=== PATIENT | female | born 1945 | race Caucasian/White ===

== ENCOUNTER → 2017-02-01 | Outpatient (CLI) | payer MEDICARE, OTHER ==
[2017-02-01 14:22] LABS: HEMOGLOBIN A1C 0.8 g/dL
[2017-02-01 15:21] LABS: ALBUMIN/GLOBULIN RATIO 1.3 (1.0-2.2); BILIRUBIN,TOTAL 0.5 mg/dL (0.2-1.0); CALCIUM 10.5 mg/dL (8.5-10.3); CREATININE 0.7 mg/dL (0.4-1.0); POTASSIUM 3.7 mmol/L (3.5-5.0); TOTAL PROTEIN 7.5 g/dL (6.7-8.2)
== END ==
LOC: LAB.WCP 08:00
PROVIDERS: ATTEND Physician Assistant Medical
DX: E11.40 Type 2 diabetes mellitus with diabetic neuropathy, unspecified (principal)
CPT/HCPCS: 36415; 80053; 83036

== ENCOUNTER 2017-12-13 08:00 | Outpatient (CLI) | payer MEDICARE, OTHER ==
[2017-12-13 13:41] LABS: ALBUMIN/GLOBULIN RATIO 1.3 (1.0-2.2); ALKALINE PHOSPHATASE 60 IU/L (42-121); ALT ALANINE AMINOTRANSFERASE 33 IU/L (10-60); AST ASPARTATE AMINOTRANSFERASE 37 IU/L (10-42); BILIRUBIN,TOTAL 0.9 mg/dL (0.2-1.0); BUN - BLOOD UREA NITROGEN 18 mg/dL (6-20); CALCIUM 10.4 mg/dL (8.5-10.3); CARBON DIOXIDE - CO2 26 mmol/L (21-32); CHLORIDE 105 mmol/L (101-111); CHOL/HDL RATIO 4.2 (<4.4); CHOLESTEROL 146 mg/dL; CREATININE 0.6 mg/dL (0.4-1.0); GFR - MDRD 99 (>89); GLUCOSE 156 mg/dL (70-100); HDL CHOLESTEROL 35 mg/dL; LDL CHOLESTEROL,CALCULATED 68 mg/dL; LDL/HDL RATIO 1.9 (<4.4); SODIUM 140 mmol/L (135-145); TOTAL PROTEIN 7.1 g/dL (6.7-8.2); VLDL CHOLESTEROL 43 mg/dL
[2017-12-13 13:50] LABS: HB2 TOTAL 16.8 g/dL; HEMOGLOBIN A1C 1.06 g/dL; HEMOGLOBIN A1C % 7.9 % (4.6-6.2)
== END 2017-12-13 08:01 | disposition home or self-care (01) ==
LOC: LAB.WCP 08:00
PROVIDERS: ATTEND Physician Assistant Medical
DX: E11.9 Type 2 diabetes mellitus without complications (principal)
CPT/HCPCS: 36415; 80053; 80061; 82043; 83036; 83721

== ENCOUNTER 2018-04-24 09:00 | Outpatient (CLI) | payer MEDICARE, OTHER ==
[2018-04-24 14:54] LABS: CALCIUM 10.5 mg/dL (8.5-10.3); CREATININE 0.9 mg/dL (0.4-1.0)
[2018-04-24 15:32] LABS: HB2 TOTAL 15.6 g/dL; HEMOGLOBIN A1C 0.83 g/dL
[2018-04-25 13:57] LABS: HEPATITIS C ANTIBODY NON-REACTIVE (NON-REACTIVE)
== END 2018-04-24 09:01 | disposition home or self-care (01) ==
LOC: LAB.WCP 09:00
PROVIDERS: ATTEND Physician Assistant Medical
DX: E11.9 Type 2 diabetes mellitus without complications (principal); Z11.59 Encounter for screening for other viral diseases
CPT/HCPCS: 36415; 80048; 83036; 86803

== ENCOUNTER 2018-10-13 08:00 | Outpatient (CLI) | payer MEDICARE, OTHER ==
[2018-10-13 14:13] LABS: ALBUMIN 3.9 g/dL (3.2-5.5); ALBUMIN/GLOBULIN RATIO 1.2 (1.0-2.2); ALKALINE PHOSPHATASE 62 IU/L (42-121); ALT ALANINE AMINOTRANSFERASE 28 IU/L (10-60); AST ASPARTATE AMINOTRANSFERASE 29 IU/L (10-42); BILIRUBIN,TOTAL 0.7 mg/dL (0.2-1.0); BUN - BLOOD UREA NITROGEN 17 mg/dL (6-20); CALCIUM 9.9 mg/dL (8.5-10.3); CARBON DIOXIDE - CO2 28 mmol/L (21-32); CHLORIDE 103 mmol/L (101-111); CHOLESTEROL 119 mg/dL; CREATININE 0.7 mg/dL (0.4-1.0); GFR - MDRD 82 (>89); GLUCOSE 133 mg/dL (70-100); HDL CHOLESTEROL 40 mg/dL; LDL CHOLESTEROL,CALCULATED 55 mg/dL; LDL/HDL RATIO 1.4 (<4.4); SODIUM 137 mmol/L (135-145); TOTAL PROTEIN 7.1 g/dL (6.7-8.2); VLDL CHOLESTEROL 24 mg/dL
[2018-10-13 14:38] LABS: HB2 TOTAL 15.9 g/dL; HEMOGLOBIN A1C 0.84 g/dL
== END 2018-10-13 23:59 | disposition home or self-care (01) ==
LOC: LAB.WCP 08:00
PROVIDERS: ATTEND Physician Assistant Medical
DX: E11.9 Type 2 diabetes mellitus without complications (principal)
CPT/HCPCS: 36415; 80053; 80061; 83036; 83721

== ENCOUNTER 2018-12-05 13:22 | Outpatient (CLI) | payer MEDICARE, OTHER ==
--- NOTE | 2018-12-08 08:52 | Mammography Report ---
Reason: SCREENING MAMMO Procedure Date: 12/05/2018 Accession Number: [id number] / [id number] Procedure: JAY - Screening Mammo w/Jimmie CPT Code: FULL RESULT: EXAM: Screening Mammo w/Jimmie DATE: 12/05/2018 3:19 PM CLINICAL HISTORY: Routine screening. Personal history of treated right breast cancer status post lumpectomy in 1993. No reported family history of breast cancer. TECHNIQUE: (B) - Bilateral CC and MLO views were obtained. COMPARISON: 04/23/2016 through 12/15/2013 PARENCHYMAL PATTERN: (A) - The breasts demonstrate scattered fibroglandular densities bilaterally. FINDINGS: Right breast: There is a 9 mm grouping of calcification in the anterior lower inner right breast, 3.5 cm from the nipple. There are no suspicious masses or areas of nonoperative distortion. There are stable lumpectomy changes from the upper outer breast. Left breast: There are no suspicious masses, calcifications, or areas of distortion. IMPRESSION: Right breast: 9 mm grouping of calcifications anterior lower inner breast. Incomplete. BI-RADS Category 0. Additional imaging is recommended. Left breast: Negative. BI-RADS Category 1. Recommend annual screening mammography. RECOMMENDATION: (ADDMAM) - Recommend additional mammographic views. BI-RADS CATEGORY: (0) - Incomplete Examination - need additional evaluation. STANDARD QUALIFYING STATEMENTS: 1. This examination was not reviewed with the aid of Computer-Aided Detection (CAD). 2. A negative or benign imaging report should not preclude biopsy if clinically suspicious findings are present. 3. Dense breasts may obscure an underlying neoplasm. 4. This examination was reviewed with the aid of 3D breast imaging (tomosynthesis).
== END 2018-12-05 13:23 | disposition home or self-care (01) ==
LOC: DI 13:22
DX: Z12.31 Encounter for screening mammogram for malignant neoplasm of breast (principal); R92.1 Mammographic calcification found on diagnostic imaging of breast; Z85.3 Personal history of malignant neoplasm of breast
CPT/HCPCS: 77063; 77067

== ENCOUNTER 2018-12-17 11:04 | Outpatient (CLI) | payer MEDICARE, OTHER ==
--- NOTE | 2018-12-17 14:38 | Mammography Report ---
Reason: INCOMPLETE MAMMO Procedure Date: 12/17/2018 Accession Number: [id number] / [id number] Procedure: JAY - Diag Special Views Dig RT CPT Code: FULL RESULT: EXAM: Diag Special Views Dig RT DATE: 12/17/2018 11:38 AM CLINICAL HISTORY: Diagnostic examination. The patient is recalled for spot magnification views of a 9 mm grouping of calcifications in the anterior lower inner right breast. TECHNIQUE: (R) - Right spot magnified CC, ML and spot magnified ML views are obtained. COMPARISON: 12/05/2018 through 12/15/2013. PARENCHYMAL PATTERN: (A) - The breast(s) demonstrate(s) scattered fibroglandular densities. FINDINGS: The 9 mm grouping of calcifications 3.5 cm from the nipple in the right anterior inner lower breast is pleomorphic with some coarse and some irregular calcifications and has increased over time. There is no associated mass or architectural distortion in the region of these calcifications, probably benign. Typically benign coarse calcifications and postlumpectomy changes are partially imaged. IMPRESSION: Probably Benign. BI-RADS category 3. RECOMMENDATION: (6MOS) - Recommend 6 month follow-up exam. Diagnostic examination of the right breast. BI-RADS CATEGORY: (3) - Probably Benign. STANDARD QUALIFYING STATEMENTS: 1. This examination was not reviewed with the aid of Computer-Aided Detection (CAD). 2. A negative or benign imaging report should not preclude biopsy if clinically suspicious findings are present. 3. Dense breasts may obscure an underlying neoplasm. 4. This examination was reviewed with the aid of 3D breast imaging (tomosynthesis).
== END 2018-12-17 11:05 | disposition home or self-care (01) ==
LOC: DI 11:04
PROVIDERS: ATTEND Physician Assistant Medical
DX: R92.1 Mammographic calcification found on diagnostic imaging of breast (principal)

== ENCOUNTER 2019-04-27 08:40 | Outpatient (CLI) | payer MEDICARE, OTHER ==
[2019-04-27 12:56] LABS: ALBUMIN/GLOBULIN RATIO 1.3 (1.0-2.2); BILIRUBIN,TOTAL 0.7 mg/dL (0.2-1.0); CALCIUM 10.4 mg/dL (8.5-10.3); CREATININE 0.6 mg/dL (0.4-1.0); TOTAL PROTEIN 7.2 g/dL (6.7-8.2)
[2019-04-27 13:36] LABS: HB2 TOTAL 15.2 g/dL; HEMOGLOBIN A1C 0.89 g/dL; HEMOGLOBIN A1C % 7.5 % (4.6-6.2)
== END 2019-04-27 23:59 | disposition home or self-care (01) ==
LOC: LAB.WCP 08:40
PROVIDERS: ATTEND Physician Assistant Medical
DX: E11.9 Type 2 diabetes mellitus without complications (principal)
CPT/HCPCS: 36415; 80053; 83036

== ENCOUNTER 2019-06-11 15:22 | Outpatient (CLI) | payer MEDICARE, OTHER ==
--- NOTE | 2019-06-12 15:14 | XRAY Report ---
Reason: SWELL INCREAS SKIN TEM OVER LT FT+DM NEUROPATHY Procedure Date: 06/11/2019 Accession Number: [id number] / [id number] Procedure: XR - Foot 3 View LT CPT Code: Final Report FULL RESULT: EXAM: LEFT FOOT RADIOGRAPHY EXAM DATE: 06/11/2019 03:25 PM. CLINICAL HISTORY: Swelling, hot. COMPARISON: None. TECHNIQUE: 3 views. FINDINGS: Bones: Small plantar and moderate to large posterior calcaneal spurs. No fracture or other bone lesion. Joints: Normal. No subluxations. Soft Tissues: Soft tissue calcification plantar to the calcaneus. Mild soft tissue swelling. Otherwise unremarkable. IMPRESSION: 1. Mild soft tissue swelling. 2. Heel spurs with small focus of probable ligamentous calcification, possible plantar fascitis. RADIA
== END 2019-06-11 15:23 | disposition home or self-care (01) ==
LOC: DI 15:22
PROVIDERS: ATTEND Podiatrist
DX: M77.32 Calcaneal spur, left foot (principal)

== ENCOUNTER 2019-06-17 14:01 | Outpatient (CLI) | payer MEDICARE, OTHER ==
--- NOTE | 2019-06-18 13:14 | MRI Report ---
Reason: SWELLING, RED, SKIN TEMP WITH NO SIGN OF +DM Procedure Date: 06/17/2019 Accession Number: [id number] / [id number] Procedure: MRI - Foot LT W/O CPT Code: Final Report FULL RESULT: EXAM: LEFT FOREFOOT MRI WITHOUT CONTRAST EXAM DATE: 06/17/2019 02:23 PM. CLINICAL HISTORY: Swelling and redness at the first toe and medial aspect of the foot. COMPARISON: None. TECHNIQUE: Multiplanar, multisequence T1-weighted and fluid-sensitive sequences of the forefoot without contrast. Other: None. FINDINGS: Bones: Mild patchy marrow edema at the medial cuneiform. Mild marrow edema at the dorsal aspect of the middle cuneiform. Marrow edema at the visualized lateral cuneiform. The lateral cuneiform is not complete in the field of view. Mild marrow edema at the proximal three fourths of the second metatarsal. Mild marrow edema at the medial aspect of the base of the first metatarsal. Mild marrow edema at the proximal aspect of the third metatarsal. No acute fracture or bone lesions. Joints: No subluxations. Small first MTP joint effusion. The ycdqdv-oluihvmc-ollkfsrjlj complex is unremarkable. The visualized plantar plates are unremarkable. Articular Cartilage: Unremarkable. Ligaments: The visualized collateral ligaments are intact. Tendons: The flexor and extensor tendons are unremarkable. Musculature: Mild edema within the visualized muscles. Moderate to severe fatty atrophy of the visualized muscles. Other: Small amount of fluid at the first intermetatarsal bursa. Subcutaneous edema and swelling mostly at the dorsal aspect of the foot and at the second and third toes. No definite abscess is seen. IMPRESSION: 1. Marrow edema at the medial cuneiform, middle cuneiform, visualized lateral cuneiform, second metatarsal, first metatarsal, and third metatarsal which may represent stress reaction or bone contusion. No definite fracture or bone lesion is seen. No definitive evidence of osteomyelitis. 2. Small first MTP joint fusion. 3. Moderate to severe atrophy and mild edema within the visualized muscles. 4. Small amount of fluid at the first intermetatarsal bursa. 5. Subcutaneous edema and swelling mostly at the dorsal aspect of the foot and at the second and third toes. No definite abscess is seen. RADIA
== END 2019-06-17 14:02 | disposition home or self-care (01) ==
LOC: DI 14:01
PROVIDERS: ATTEND Podiatrist
DX: R60.0 Localized edema (principal); M62.572 Muscle wasting and atrophy, not elsewhere classified, left ankle and foot

== ENCOUNTER 2019-06-29 09:42 | Outpatient (CLI) | payer MEDICARE, OTHER ==
--- NOTE | 2019-06-29 12:04 | Mammography Report ---
Reason: BREAST NODULE Procedure Date: 06/29/2019 Accession Number: [id number] / [id number] Procedure: JAY - Diagnostic Dig RT CPT Code: Final Report FULL RESULT: EXAM: Diagnostic Dig RT DATE: 06/29/2019 10:28 AM CLINICAL HISTORY: The patient is an asymptomatic 71-year-old female with a personal history of right breast cancer, post conservation therapy. Six-month follow-up right breast diagnostic examination for calcifications. TECHNIQUE: (Diagnostic right breast images obtained, including tomography. COMPARISON: 12/17/2018 PARENCHYMAL PATTERN: There are scattered fibroglandular densities. FINDINGS: There are indeterminate grouped calcifications in the lower / inner anterior superficial position spanning 1.8 cm in maximal dimension. There is no associated mass or distortion. These calcifications may be dystrophic/benign and dystrophic. Recommend pathologic evaluation given progressive increase and indeterminant morphology. Remainder the breast is unchanged. Stable posttreatment deformity in the posterior lateral position. IMPRESSION: Suspicious findings. BI-RADS category 4. RECOMMENDATION: (BIOPSY) - Recommend targeted stereotactic core biopsy. BI-RADS CATEGORY: (4) - Suspicious. Results and recommendations discussed with the patient. The ordering provider notified -- 06/29/2019. Biopsy scheduled: July 30, 2019. STANDARD QUALIFYING STATEMENTS: 1. This examination was not reviewed with the aid of Computer-Aided Detection (CAD). 2. A negative or benign imaging report should not preclude biopsy if clinically suspicious findings are present. 3. Dense breasts may obscure an underlying neoplasm. 4. This examination was reviewed with the aid of 3D breast imaging (tomosynthesis).
== END 2019-06-29 09:43 | disposition home or self-care (01) ==
LOC: DI 09:42
PROVIDERS: ATTEND Physician Assistant Medical
DX: R92.1 Mammographic calcification found on diagnostic imaging of breast (principal); Z85.3 Personal history of malignant neoplasm of breast

== ENCOUNTER 2019-07-30 08:49 | Outpatient (CLI) | payer MEDICARE, OTHER ==
[~2019-07-30 08:49] MED LIST: BUFFERED LIDOCAINE 10 ML SYRINGE ONE
[2019-07-30] MEDS ORDERED: BUFFERED LIDOCAINE 10 ML SYRINGE IU ONE (11:29)
--- NOTE | 2019-07-30 14:09 | Mammography Report ---
Reason: RT BREAST CALCIFICATIONS Procedure Date: 07/30/2019 Accession Number: [id number] / [id number] Procedure: JAY - Stereotactic Core BX RT CPT Code: Final Report FULL RESULT: EXAM: Stereotactic Core BX RT DATE: 07/30/2019 10:54 AM CLINICAL HISTORY: RT BREAST CALCIFICATIONS COMPARISON: None. CLINICAL DATA: Target calcifications measuring up to 1.8 cm in the 4-5 o'clock axis of the right breast. Informed consent was obtained. The patient was positioned in the mammography machine with biopsy attachment. Targeting imaging was obtained and the lesion was selected. The breast was approached from the medial aspect. Using standard aseptic technique, 1% buffered lidocaine was injected into the breasts for local anesthesia. A small denise was made in the skin with a #11 blade. A 9-gauge vacuum-assisted device was advanced into the breasts towards the target and confirmatory imaging was obtained to verify targeting and 6 specimens were obtained. Specimen radiography was performed which demonstrated the presence of calcifications in the sample. A biopsy marker clip was then placed into the biopsy cavity. The biopsy device was subsequently removed from the breast. Hemostasis was achieved. Follow-up 3-D mammography was then performed to verify biopsy targeting and clip placement. The mammography showed concordant clip position . The wound was dressed and ice applied. The patient was observed for approximately 15 minutes, then discharged from the diagnostic imaging Department in stable condition following instructions on wound care and obtaining biopsy results. The tissue was sent for histologic analysis. IMPRESSION: Stereotactic biopsy of right breast calcifications. RADIA
== END 2019-07-30 08:50 | disposition home or self-care (01) ==
LOC: DI 08:49
PROVIDERS: ATTEND Physician Assistant Medical
DX: D05.11 Intraductal carcinoma in situ of right breast (principal)
CPT/HCPCS: 19081

== ENCOUNTER 2019-08-06 12:20 | Outpatient (CLI) | payer MEDICARE, OTHER ==
[2019-08-06] MEDS ORDERED: GADOBUTROL 7.5 MMOL/7.5 ML VIAL ONE (12:35)
== END 2019-08-06 12:21 | disposition home or self-care (01) ==
LOC: DI 12:20
PROVIDERS: ATTEND Physician Assistant Medical
DX: Z53.9 Procedure and treatment not carried out, unspecified reason (principal)

== ENCOUNTER 2019-08-06 12:58 | Outpatient (CLI) | payer MEDICARE, OTHER ==
[2019-08-06 13:28] LABS: ALBUMIN/GLOBULIN RATIO 1.2 (1.0-2.2); BILIRUBIN,TOTAL 0.5 mg/dL (0.2-1.0); CALCIUM 10.9 mg/dL (8.5-10.3); CREATININE 0.8 mg/dL (0.4-1.0); TOTAL PROTEIN 7.3 g/dL (6.7-8.2)
== END 2019-08-06 12:59 | disposition home or self-care (01) ==
LOC: LAB 12:58
PROVIDERS: ATTEND Physician Assistant Medical
DX: E11.49 Type 2 diabetes mellitus with other diabetic neurological complication (principal)
CPT/HCPCS: 36415; 80053

== ENCOUNTER 2019-08-07 12:55 | Outpatient (CLI) | payer MEDICARE, OTHER ==
[2019-08-07] MEDS ORDERED: GADOBUTROL 7.5 MMOL/7.5 ML VIAL ONE (13:30)
[2019-08-07] MEDS ORDERED: GADOBUTROL 7.5 MMOL/7.5 ML VIAL IVP ONE (15:00)
--- NOTE | 2019-08-07 17:03 | MRI Report ---
Reason: CARCINOMA BREAST RT Procedure Date: 08/07/2019 Accession Number: [id number] / [id number] Procedure: MRI - Breast W/WO Cont CPT Code: 79280 Final Report FULL RESULT: EXAM: Bilateral breast MRI with and without contrast DATE: 08/07/2019 3:02 PM CLINICAL HISTORY: Patient is a 71-year-old female with a personal history of right breast cancer, post conservation therapy. 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 Pretreatment MRI requested to assess for extent of an contralateral disease. COMPARISON: 06/29/2019 TECHNIQUE: Dedicated breast coil: Axial - precontrast STIR Axial - postcontrast sequential 1 minute three-dimensional FLASH (x 5) Axial - high-resolution volumetric water stimulation acquisition (VIEWS) CONTRAST USED: 7.5 mL Gadavist (gadolinium). POSTPROCESSING: Subtraction dynamic/curve analysis and multiplanar reformations with CAD stream FINDINGS: Parenchyma/enhancement: The breast tissue is predominately with minimal background enhancement. Right breast: There is marked asymmetry and underlying deformity secondary to prior conservation therapy including surgical excision and radiation. The nipple is displaced superiolaterally. The site of biopsy-proven DCIS in the anterior /superficial medial position is obscured by a 2 cm hematoma. A microclip is in place. The remainder of the breast is unremarkable. There is no dominant focus of suspicious mass or nonmass enhancement to suggest multifocal or multicentric disease. There are no pathologically enlarged axillary or internal mammary lymph nodes. Left breast: There is no dominant focus of suspicious mass or nonmass enhancement, distortion or skin thickening. There are no pathologically enlarged axillary or internal mammary lymph nodes. IMPRESSION: RIGHT BREAST: BI-RADS 6, Known Malignancy The site of proven DCIS is obscured by postprocedural hematoma. A microclip is in place. No MR evidence for multifocal, multicentric or regional metastatic disease LEFT BREAST: BI-RADS 1, Negative No MR evidence for occult malignancy. COMMENT: The literature indicates that a negative dynamic breast MRI has a high sensitivity and specificity for the detection of invasive carcinoma (to a threshold of 5 mm). MRI is not reliably sensitive for detecting ductal carcinoma in situ or large invasive neoplasms with only minimal enhancement (i.e. mucinous carcinoma). Normal-appearing lymph nodes on MRI may contain microscopic tumor. Appropriate clinical mammographic and sonographic followup should be performed if recommended. Negative MRI should not dissuade further evaluation of any suspicious mammographic calcifications and/or worrisome palpable masses.
== END 2019-08-07 12:56 | disposition home or self-care (01) ==
LOC: DI 12:55
PROVIDERS: ATTEND Physician Assistant Medical
DX: D05.11 Intraductal carcinoma in situ of right breast (principal)
CPT/HCPCS: 77049; A9585

== ENCOUNTER 2019-08-24 13:36 | Outpatient (CLI) | payer MEDICARE, OTHER | END 2019-08-24 13:37 | disposition home or self-care (01) | LOC: RT 13:36 | PROVIDERS: ATTEND Surgery | DX: Z01.810 Encounter for preprocedural cardiovascular examination (principal); D05.11 Intraductal carcinoma in situ of right breast | CPT/HCPCS: 93005 ==

== ENCOUNTER 2019-09-11 15:35 | Outpatient (CLI) | payer MEDICARE, OTHER ==
--- NOTE | 2019-09-15 12:12 | DEXA Report ---
Reason: POST MENOPAUSAL Procedure Date: 09/11/2019 Accession Number: [id number] / [id number] Procedure: DEX - Dexa Spine and/or Hip CPT Code: Final Report FULL RESULT: EXAM: Dexa Spine and/or Hip DATE: 09/11/2019 5:00 PM CLINICAL HISTORY: POST MENOPAUSAL TECHNIQUE: Dual energy x-ray absorptiometry (DXA) was performed on a Powervation System. Regions measured are the AP Spine, femoral neck, and if needed forearm. COMPARISON: None. In accordance with the International Society for Clinical Densitometry (ISCD) guidelines, data from previous exams may be reanalyzed using current recommendations and techniques. This is done to allow a more accurate basis for comparison with the current study. FINDINGS: The data for the lumbar spine is as follows: BMD (g/cm/cm) T-SCORE Z-SCORE REGION L1 1.184 0.5 1.7 L2 1.647 3.7 4.9 L3 1.923 6.0 7.2 L4 1.651 3.8 5.0 TOTAL 1.590 3.4 4.6 NOTE: All evaluable vertebrae are used for classification The data for the hip is as follows: BMD (g/cm/cm) T-SCORE Z-SCORE REGION Neck 0.974 -0.5 1.0 TOTAL 1.106 0.8 2.0 NOTE: The femoral neck or total proximal femur, whichever is lowest, is used for classification. IMPRESSION: THE WHO CLASSIFICATION BASED ON THE INTERNATIONAL REFERENCE STANDARD IS NORMAL. THE FRACTURE RISK IS NOT INCREASED. RECOMMENDATION: Patients with diagnosis of osteoporosis or osteopenia should have regular bone mineral density assessment. For those eligible for Medicare, routine testing is allowed once every 2 years. Testing frequency can be increased for patients who have rapidly progressing disease or for those who are receiving medical therapy to restore bone mass. COMMENT: World Health Organization (WHO) definitions for osteoporosis and osteopenia: NORMAL BMD: T-score at -1.0 or higher, fracture risk is low OSTEOPENIA BMD: T-score between -1.0 and -2.5, fracture risk is increased. OSTEOPOROSIS BMD: T-score at -2.5 or lower, fracture risk is high. National Osteoporosis Foundation recommends: 1. Obtain adequate dietary calcium (at least 1200 mg per day) and vitamin D (400-800 international units per day). 2. Participate, as appropriate, in regular weightbearing and muscle-strengthening exercise. 3. Avoid tobacco use and reduce alcohol and caffeine intake. 4. For more detailed information see the website at www.NOF.org.
== END 2019-09-11 15:36 | disposition home or self-care (01) ==
LOC: DI 15:35
PROVIDERS: ATTEND Internal Medicine
DX: Z78.0 Asymptomatic menopausal state (principal); C50.919 Malignant neoplasm of unspecified site of unspecified female breast
CPT/HCPCS: 77080

== ENCOUNTER 2019-12-04 10:40 | Outpatient (CLI) | payer MEDICARE, OTHER ==
[2019-12-04 13:26] LABS: HB2 TOTAL 15.5 g/dL; HEMOGLOBIN A1C 1.02 g/dL; HEMOGLOBIN A1C % 8.2 % (4.6-6.2)
[2019-12-04 14:02] LABS: CHOLESTEROL 152 mg/dL; HDL CHOLESTEROL 38 mg/dL; LDL CHOLESTEROL,CALCULATED 71 mg/dL; LDL/HDL RATIO 1.9 (<4.4); VLDL CHOLESTEROL 43 mg/dL
== END 2019-12-04 23:59 | disposition home or self-care (01) ==
LOC: LAB.WCP 10:40
PROVIDERS: ATTEND Physician Assistant Medical
DX: E11.40 Type 2 diabetes mellitus with diabetic neuropathy, unspecified (principal)
CPT/HCPCS: 36415; 80061; 83036; 83721

== ENCOUNTER 2019-12-11 08:34 | Outpatient (CLI) | payer MEDICARE, OTHER ==
[2019-12-11 13:30] LABS: ALBUMIN 3.9 g/dL (3.2-5.5); ALBUMIN/GLOBULIN RATIO 1.3 (1.0-2.2); BILIRUBIN,TOTAL 0.8 mg/dL (0.2-1.0); CALCIUM 10.4 mg/dL (8.5-10.3); CREATININE 0.7 mg/dL (0.4-1.0)
== END 2019-12-11 23:59 | disposition home or self-care (01) ==
LOC: LAB.WCP 08:34
PROVIDERS: ATTEND Physician Assistant Medical
DX: E11.40 Type 2 diabetes mellitus with diabetic neuropathy, unspecified (principal)
CPT/HCPCS: 36415; 80053

== ENCOUNTER 2020-03-07 09:20 | Outpatient (CLI) | payer MEDICARE, OTHER ==
[2020-03-07 12:41] LABS: CALCIUM 10.7 mg/dL (8.5-10.3); CREATININE 0.6 mg/dL (0.4-1.0)
[2020-03-07 13:58] LABS: HB2 TOTAL 15.2 g/dL; HEMOGLOBIN A1C 0.86 g/dL; HEMOGLOBIN A1C % 7.3 % (4.6-6.2)
== END 2020-03-07 09:21 | disposition home or self-care (01) ==
LOC: LAB.WCP 09:20
PROVIDERS: ATTEND Physician Assistant Medical
DX: E11.40 Type 2 diabetes mellitus with diabetic neuropathy, unspecified (principal)
CPT/HCPCS: 36415; 80048; 83036

== ENCOUNTER 2020-09-13 10:11 | Outpatient (CLI) | payer MEDICARE, OTHER ==
--- NOTE | 2020-09-14 15:07 | Mammography Report ---
UNILATERAL LEFT DIGITAL SCREENING MAMMOGRAM 3D/2D: 09/13/2020 CLINICAL: Routine screening. Personal history of right breast cancer. Comparison is made to exams dated: 12/05/2018 mammogram, 04/23/2016 mammogram, and 04/22/2015 mammogram - [facility]. There are scattered fibroglandular elements in left breast. No significant masses, calcifications, or other findings are seen in the breast. There has been no significant interval change. IMPRESSION: NEGATIVE There is no mammographic evidence of malignancy. A 1 year screening mammogram is recommended. This exam was interpreted at Station ID: [id number]. NOTE: For mammograms, a report in lay terms will be sent to the patient. Approximately 15% of breast malignancies will not be visualized mammographically. In the management of a palpable breast mass, a negative mammogram must not discourage biopsy of a clinically suspicious lesion. Electronically Signed By: Tariq Mota M.D. ar/penrad:09/13/2020 12:33:12 ACR BI-RADS Category 1: Negative 3341F PARENCHYMAL PATTERN: (A) - The breast(s) demonstrate(s) scattered fibroglandular densities. BI-RADS CATEGORY: (1) - 1 RECOMMENDATION: (ANNUAL) - Recommend routine annual screening mammography. [id number] 1 year screening LATERALITY: (B)
== END 2020-09-13 10:12 | disposition home or self-care (01) ==
LOC: DI.N 10:11
PROVIDERS: ATTEND Surgery
DX: Z12.31 Encounter for screening mammogram for malignant neoplasm of breast (principal); Z85.3 Personal history of malignant neoplasm of breast; Z90.11 Acquired absence of right breast and nipple

== ENCOUNTER 2020-10-31 09:41 | Outpatient (CLI) | payer MEDICARE, OTHER ==
[2020-10-31 13:13] LABS: ALBUMIN/GLOBULIN RATIO 1.3 (1.0-2.2); ALKALINE PHOSPHATASE 82 IU/L (42-121); ALT ALANINE AMINOTRANSFERASE 36 IU/L (10-60); AST ASPARTATE AMINOTRANSFERASE 27 IU/L (10-42); BILIRUBIN,TOTAL 0.6 mg/dL (0.2-1.0); BUN - BLOOD UREA NITROGEN 17 mg/dL (6-20); CALCIUM 10.9 mg/dL (8.5-10.3); CARBON DIOXIDE - CO2 29 mmol/L (21-32); CHLORIDE 105 mmol/L (101-111); CHOLESTEROL 140 mg/dL; CREATININE 0.7 mg/dL (0.4-1.0); GFR - MDRD 82 (>89); GLUCOSE 159 mg/dL (70-100); HDL CHOLESTEROL 35 mg/dL; LDL CHOLESTEROL,CALCULATED 66 mg/dL; LDL/HDL RATIO 1.9 (<4.4); POTASSIUM 4.2 mmol/L (3.5-5.0); SODIUM 142 mmol/L (135-145); TOTAL PROTEIN 7.2 g/dL (6.7-8.2); TRIGLYCERIDES 197 mg/dL; VLDL CHOLESTEROL 39 mg/dL
[2020-10-31 13:25] LABS: ESTIMATED AVERAGE GLUCOSE 194 mg/dL (70-100); HEMOGLOBIN A1c% 8.4 % (4.27-6.07)
== END 2020-10-31 23:59 | disposition home or self-care (01) ==
LOC: LAB.WCP 09:41
PROVIDERS: ATTEND Physician Assistant Medical
DX: E11.49 Type 2 diabetes mellitus with other diabetic neurological complication (principal)
CPT/HCPCS: 36415; 80053; 80061; 83036; 83721

== ENCOUNTER 2021-02-15 09:03 | Outpatient (CLI) | payer MEDICARE, OTHER ==
[2021-02-15 12:42] LABS: CALCIUM 10.9 mg/dL (8.5-10.3); CREATININE 0.7 mg/dL (0.4-1.0); POTASSIUM 4.1 mmol/L (3.5-5.0)
[2021-02-15 13:31] LABS: ESTIMATED AVERAGE GLUCOSE 180 mg/dL (70-100); HEMOGLOBIN A1c% 7.9 % (4.27-6.07)
== END 2021-02-15 23:59 | disposition home or self-care (01) ==
LOC: LAB.WCP 09:03
PROVIDERS: ATTEND Physician Assistant Medical
DX: E11.49 Type 2 diabetes mellitus with other diabetic neurological complication (principal)
CPT/HCPCS: 36415; 80048; 83036

== ENCOUNTER 2021-04-05 08:00 | Outpatient (CLI) | payer MEDICARE, OTHER ==
[2021-04-05 18:05] LABS: CALCIUM 10.6 mg/dL (8.5-10.3); CREATININE 0.6 mg/dL (0.4-1.0)
== END 2021-04-05 23:59 | disposition home or self-care (01) ==
LOC: LAB.WCP 08:00
PROVIDERS: ATTEND Physician Assistant Medical
DX: E83.52 Hypercalcemia (principal)
CPT/HCPCS: 36415; 80048; 83970

== ENCOUNTER 2021-05-15 08:00 | Outpatient (CLI) | payer MEDICARE, OTHER ==
[2021-05-15 12:57] LABS: ALBUMIN 4.1 g/dL (3.2-5.5); ALBUMIN/GLOBULIN RATIO 1.4 (1.0-2.2); ALKALINE PHOSPHATASE 79 IU/L (42-121); ALT ALANINE AMINOTRANSFERASE 31 IU/L (10-60); AST ASPARTATE AMINOTRANSFERASE 26 IU/L (10-42); BILIRUBIN,TOTAL 0.5 mg/dL (0.2-1.0); BUN - BLOOD UREA NITROGEN 21 mg/dL (6-20); CALCIUM 10.5 mg/dL (8.5-10.3); CARBON DIOXIDE - CO2 30 mmol/L (21-32); CHLORIDE 103 mmol/L (101-111); CHOL/HDL RATIO 3.9 (<4.4); CHOLESTEROL 146 mg/dL; CREATININE 0.7 mg/dL (0.4-1.0); GFR - MDRD 82 (>89); GLUCOSE 129 mg/dL (70-100); HDL CHOLESTEROL 37 mg/dL; LDL CHOLESTEROL,CALCULATED 72 mg/dL; LDL/HDL RATIO 1.9 (<4.4); POTASSIUM 3.9 mmol/L (3.5-5.0); SODIUM 141 mmol/L (135-145); TOTAL PROTEIN 7.1 g/dL (6.7-8.2); TRIGLYCERIDES 183 mg/dL; VLDL CHOLESTEROL 37 mg/dL
[2021-05-15 13:11] LABS: ESTIMATED AVERAGE GLUCOSE 203 mg/dL (70-100); HEMOGLOBIN A1c% 8.7 % (4.27-6.07)
== END 2021-05-15 23:59 | disposition home or self-care (01) ==
LOC: LAB.WCP 08:00
PROVIDERS: ATTEND Physician Assistant Medical
DX: E11.49 Type 2 diabetes mellitus with other diabetic neurological complication (principal)
CPT/HCPCS: 36415; 80053; 80061; 83036; 83721

== ENCOUNTER 2021-08-15 09:10 | Outpatient (CLI) | payer MEDICARE, OTHER ==
[2021-08-15 12:57] LABS: ESTIMATED AVERAGE GLUCOSE 183 mg/dL (70-100)
[2021-08-15 13:03] LABS: CALCIUM 10.8 mg/dL (8.5-10.3); CREATININE 0.7 mg/dL (0.4-1.0); POTASSIUM 4.5 mmol/L (3.5-5.0)
== END 2021-08-15 09:11 | disposition home or self-care (01) ==
LOC: LAB.N 09:10
PROVIDERS: ATTEND Physician Assistant Medical
DX: E11.49 Type 2 diabetes mellitus with other diabetic neurological complication (principal)
CPT/HCPCS: 36415; 80048; 83036

== ENCOUNTER 2021-11-13 09:03 | Outpatient (CLI) | payer MEDICARE, OTHER ==
[2021-11-13 12:41] LABS: ALBUMIN 4.1 g/dL (3.2-5.5); ALBUMIN/GLOBULIN RATIO 1.2 (1.0-2.2); ALKALINE PHOSPHATASE 83 IU/L (42-121); ALT ALANINE AMINOTRANSFERASE 28 IU/L (10-60); AST ASPARTATE AMINOTRANSFERASE 26 IU/L (10-42); BILIRUBIN,TOTAL 0.5 mg/dL (0.2-1.0); BUN - BLOOD UREA NITROGEN 24 mg/dL (6-20); CALCIUM 10.8 mg/dL (8.5-10.3); CARBON DIOXIDE - CO2 28 mmol/L (21-32); CHLORIDE 102 mmol/L (101-111); CHOL/HDL RATIO 3.9 (<4.4); CHOLESTEROL 167 mg/dL; CREATININE 0.7 mg/dL (0.4-1.0); GFR - MDRD 82 (>89); GLUCOSE 86 mg/dL (70-100); HDL CHOLESTEROL 43 mg/dL; LDL CHOLESTEROL,CALCULATED 97 mg/dL; LDL/HDL RATIO 2.3 (<4.4); POTASSIUM 4.1 mmol/L (3.5-5.0); SODIUM 139 mmol/L (135-145); TOTAL PROTEIN 7.5 g/dL (6.7-8.2); TRIGLYCERIDES 137 mg/dL; VLDL CHOLESTEROL 27 mg/dL
== END 2021-11-13 09:04 | disposition home or self-care (01) ==
LOC: LAB.N 09:03
PROVIDERS: ATTEND Physician Assistant Medical
DX: E11.49 Type 2 diabetes mellitus with other diabetic neurological complication (principal)
CPT/HCPCS: 36415; 80053; 80061; 81599; 83036; 83721

== ENCOUNTER 2022-02-23 09:04 | Outpatient (CLI) | payer MEDICARE, OTHER ==
[2022-02-23 12:29] LABS: ESTIMATED AVERAGE GLUCOSE 194 mg/dL (70-100); HEMOGLOBIN A1c% 8.4 % (4.27-6.07)
[2022-02-23 12:41] LABS: BUN - BLOOD UREA NITROGEN 17 mg/dL (6-20); CALCIUM 10.6 mg/dL (8.5-10.3); CARBON DIOXIDE - CO2 30 mmol/L (21-32); CHLORIDE 104 mmol/L (101-111); CHOL/HDL RATIO 3.1 (<4.4); CHOLESTEROL 123 mg/dL; CREATININE 0.7 mg/dL (0.4-1.0); GFR - MDRD 82 (>89); GLUCOSE 125 mg/dL (70-100); HDL CHOLESTEROL 40 mg/dL; LDL CHOLESTEROL,CALCULATED 60 mg/dL; LDL/HDL RATIO 1.5 (<4.4); POTASSIUM 4.3 mmol/L (3.5-5.0); SODIUM 140 mmol/L (135-145); TRIGLYCERIDES 113 mg/dL; VLDL CHOLESTEROL 23 mg/dL
== END 2022-02-23 09:05 | disposition home or self-care (01) ==
LOC: LAB.N 09:04
PROVIDERS: ATTEND Physician Assistant Medical
DX: E11.49 Type 2 diabetes mellitus with other diabetic neurological complication (principal)
CPT/HCPCS: 36415; 80048; 80061; 83036; 83721

== ENCOUNTER 2022-06-06 10:04 | Outpatient (CLI) | payer MEDICARE, OTHER ==
[2022-06-06 13:17] LABS: CALCIUM 10.5 mg/dL (8.5-10.3); CREATININE 0.7 mg/dL (0.4-1.0); POTASSIUM 4.3 mmol/L (3.5-5.0)
[2022-06-06 13:56] LABS: ESTIMATED AVERAGE GLUCOSE 203 mg/dL (70-100); HEMOGLOBIN A1c% 8.7 % (4.27-6.07)
== END 2022-06-06 10:05 | disposition home or self-care (01) ==
LOC: LAB.N 10:04
PROVIDERS: ATTEND Physician Assistant Medical
DX: E11.49 Type 2 diabetes mellitus with other diabetic neurological complication (principal)
CPT/HCPCS: 36415; 80048; 83036

== ENCOUNTER 2022-09-07 09:26 | Outpatient (CLI) | payer MEDICARE, OTHER ==
[2022-09-07 13:32] LABS: ALBUMIN 3.7 g/dL (3.2-5.5); ALBUMIN/GLOBULIN RATIO 1.1 (1.0-2.2); ALKALINE PHOSPHATASE 73 IU/L (42-121); ALT ALANINE AMINOTRANSFERASE 26 IU/L (10-60); AST ASPARTATE AMINOTRANSFERASE 25 IU/L (10-42); BILIRUBIN,TOTAL 0.5 mg/dL (0.2-1.0); BUN - BLOOD UREA NITROGEN 21 mg/dL (6-20); CALCIUM 10.6 mg/dL (8.5-10.3); CARBON DIOXIDE - CO2 28 mmol/L (21-32); CHLORIDE 102 mmol/L (101-111); CHOLESTEROL 112 mg/dL; CREATININE 0.7 mg/dL (0.4-1.0); ESTIMATED AVERAGE GLUCOSE 180 mg/dL (70-100); GFR - MDRD 82 (>89); GLUCOSE 161 mg/dL (70-100); HDL CHOLESTEROL 37 mg/dL; HEMOGLOBIN A1c% 7.9 % (4.27-6.07); LDL CHOLESTEROL,CALCULATED 49 mg/dL; LDL/HDL RATIO 1.3 (<4.4); POTASSIUM 4.2 mmol/L (3.5-5.0); SODIUM 141 mmol/L (135-145); TOTAL PROTEIN 7.2 g/dL (6.7-8.2); TRIGLYCERIDES 128 mg/dL; VLDL CHOLESTEROL 26 mg/dL
== END 2022-09-07 09:27 | disposition home or self-care (01) ==
LOC: LAB.N 09:26
PROVIDERS: ATTEND Physician Assistant Medical
DX: E11.49 Type 2 diabetes mellitus with other diabetic neurological complication (principal)
CPT/HCPCS: 36415; 80053; 80061; 83036; 83721

== ENCOUNTER 2022-10-10 15:42 | Outpatient (CLI) | payer MEDICARE, OTHER ==
--- NOTE | 2022-10-10 20:32 | XRAY Report ---
PROCEDURE: Foot 3 View RT INDICATIONS: EVAL FOR OSTEOMYECOTIS TECHNIQUE: 3 views of the foot were acquired. COMPARISON: Right foot radiographs 03/13/2022 FINDINGS: Bones: No acute fractures or dislocations. No suspicious bony lesions. Severe degenerative changes are seen throughout the tarsometatarsal joints with joint space narrowing, subchondral sclerosis, ma rginal osteophyte formation. Naviculocuneiform degenerative changes are also present. Calcaneal enthe sophytes are noted. No focal osseous erosion is seen. Soft tissues: Mild skin irregularity is seen at the site of the indicated wound at the plantar aspect of the foot. IMPRESSION: 1.Severe midfoot osteoarthrosis. 2.No definite radiographic signs of osteomyelitis. If there is continued clinical concern, MRI could be performed for more sensitive evaluation. Reviewed by: Tariq Mota MD on 10/10/2022 8:31 PM PDT Approved by: Tariq Mota MD on 10/10/2022 8:31 PM PDT Station ID: [id number]
== END 2022-10-10 15:43 | disposition home or self-care (01) ==
LOC: DI 15:42
PROVIDERS: ATTEND Family Medicine
DX: E11.621 Type 2 diabetes mellitus with foot ulcer (principal); L97.412 Non-pressure chronic ulcer of right heel and midfoot with fat layer exposed; M19.071 Primary osteoarthritis, right ankle and foot

== ENCOUNTER 2023-06-26 08:59 | Outpatient (CLI) | payer MEDICARE, OTHER ==
[2023-06-26 12:56] LABS: CREATININE 0.7 mg/dL (0.6-1.3); POTASSIUM 4.2 mmol/L (3.5-4.5)
[2023-06-26 13:28] LABS: ESTIMATED AVERAGE GLUCOSE 140 mg/dL (70-100); HEMOGLOBIN A1c% 6.5 % (4.27-6.07)
== END 2023-06-26 09:00 | disposition home or self-care (01) ==
LOC: LAB.N 08:59
PROVIDERS: ATTEND Physician Assistant Medical
DX: E11.49 Type 2 diabetes mellitus with other diabetic neurological complication (principal)
CPT/HCPCS: 36415; 80048; 83036

== ENCOUNTER 2023-07-05 15:20 | Outpatient (CLI) | payer MEDICARE, OTHER ==
[2023-07-05 15:38] LABS: BASOPHILS # (AUTO) 0.1 10^3/uL (0.0-0.1); BASOPHILS % (AUTO) 0.6 %; EOSINOPHILS # (AUTO) 0.2 10^3/uL (0.0-0.7); HCT - HEMATOCRIT 49.1 % (37.0-47.0); HGB - HEMOGLOBIN 15.8 g/dL (12.0-16.0); LYMPHOCYTES # (AUTO) 3.3 10^3/uL (1.5-3.5); LYMPHOCYTES % (AUTO) 32.7 %; MEAN CORPUSCULAR HEMOGLOBIN 30.3 pg (27.0-31.0); MEAN CORPUSCULAR HGB CONC 32.2 g/dL (32.0-36.0); MEAN CORPUSCULAR VOLUME 94.2 fL (81.0-99.0); MEAN PLATELET VOLUME 10.1 fL (7.9-10.8); MONOCYTES # (AUTO) 0.9 10^3/uL (0.0-1.0); MONOCYTES % (AUTO) 9.3 %; NEUTROPHILS # (AUTO) 5.6 10^3/uL (1.5-6.6); NEUTROPHILS % (AUTO) 55.1 %; PLT - PLATELET COUNT 349 10^3/uL (130-450); RED BLOOD COUNT 5.21 10^6/uL (4.20-5.40); RED CELL DISTRIBUTION WIDTH 14.5 % (12.0-15.0); WHITE BLOOD COUNT 10.1 x10^3/uL (4.8-10.8)
[2023-07-05 16:03] LABS: CALCIUM 11.1 mg/dL (8.5-10.3); CREATININE 0.8 mg/dL (0.6-1.3); POTASSIUM 3.9 mmol/L (3.5-4.5)
== END 2023-07-05 15:21 | disposition home or self-care (01) ==
LOC: LAB 15:20
PROVIDERS: ATTEND Orthopaedic Surgery Foot and Ankle Surgery
DX: Z01.818 Encounter for other preprocedural examination (principal)
CPT/HCPCS: 36415; 80048; 85025; 93005

== ENCOUNTER 2023-09-24 08:33 | Outpatient (CLI) | payer MEDICARE, OTHER ==
[2023-09-24 13:04] LABS: ESTIMATED AVERAGE GLUCOSE 146 mg/dL (70-100); HEMOGLOBIN A1c% 6.7 % (4.27-6.07)
[2023-09-24 14:37] LABS: ALBUMIN 4.1 g/dL (3.2-5.5); ALBUMIN/GLOBULIN RATIO 1.3 (1.0-2.2); ALKALINE PHOSPHATASE 72 IU/L (42-121); ALT ALANINE AMINOTRANSFERASE 18 IU/L (10-60); AST ASPARTATE AMINOTRANSFERASE 23 IU/L (10-42); BILIRUBIN,TOTAL 0.4 mg/dL (0.2-1.0); BUN - BLOOD UREA NITROGEN 22 mg/dL (6-20); CALCIUM 11.2 mg/dL (8.5-10.3); CARBON DIOXIDE - CO2 31 mmol/L (21-32); CHLORIDE 107 mmol/L (101-111); CHOL/HDL RATIO 2.5 (<4.4); CHOLESTEROL 122 mg/dL; CREATININE 0.7 mg/dL (0.6-1.3); GFR - MDRD 81 (>89); GLUCOSE 119 mg/dL (74-104); HDL CHOLESTEROL 49 mg/dL; LDL CHOLESTEROL,CALCULATED 51 mg/dL; POTASSIUM 4.3 mmol/L (3.5-4.5); SODIUM 141 mmol/L (135-145); TOTAL PROTEIN 7.3 g/dL (6.4-8.9); TRIGLYCERIDES 108 mg/dL (48-352); VLDL CHOLESTEROL 22 mg/dL
== END 2023-09-24 08:34 | disposition home or self-care (01) ==
LOC: LAB.N 08:33
PROVIDERS: ATTEND Physician Assistant Medical
DX: E11.49 Type 2 diabetes mellitus with other diabetic neurological complication (principal)
CPT/HCPCS: 36415; 80053; 80061; 83036; 83721

== ENCOUNTER 2023-12-10 13:40 | Outpatient (CLI) | payer MEDICARE, OTHER ==
--- NOTE | 2023-12-11 09:27 | Mammography Report ---
UNILATERAL LEFT DIGITAL SCREENING MAMMOGRAM 3D/2D: 12/10/2023 CLINICAL: Routine screening. Personal history of right breast cancer. Comparison is made to exams dated: 03/09/2022 mammogram, 09/13/2020 mammogram, 07/30/2019 stereotactic b iopsy, 06/29/2019 mammogram, 12/17/2018 mammogram, and 12/05/2018 mammogram - [facility]. There are scattered areas of fibroglandular density in the left breast (category b / 25%-50% glandula r tissue). No significant masses, calcifications, or other findings are seen in the breast. There has been no significant interval change. IMPRESSION: NEGATIVE There is no mammographic evidence of malignancy. A 1 year screening mammogram is recommended. This exam was interpreted at Station ID: [id number]. NOTE: For mammograms, a report in lay terms will be sent to the patient. Approximately 15% of breast malignancies will not be visualized mammographically. In the management of a palpable breast mass, a negative mammogram must not discourage biopsy of a clinically suspicious lesion. Electronically Signed By: Edson Esteves M.D. aty/penrad:12/10/2023 17:16:37 ACR BI-RADS Category 1: Negative 3341F PARENCHYMAL PATTERN: (A) - The breast(s) demonstrate(s) scattered fibroglandular densities. BI-RADS CATEGORY: (1) - 1 RECOMMENDATION: (ANNUAL) - Recommend routine annual screening mammography. [id number] 1 year screening LATERALITY: (B)
== END 2023-12-10 13:41 | disposition home or self-care (01) ==
LOC: DI 13:40
DX: Z12.31 Encounter for screening mammogram for malignant neoplasm of breast (principal); R92.323 Mammographic fibroglandular density, bilateral breasts; Z85.3 Personal history of malignant neoplasm of breast

== ENCOUNTER 2023-12-17 08:09 | Outpatient (CLI) | payer MEDICARE, OTHER ==
[2023-12-17 13:15] LABS: CALCIUM 11.1 mg/dL (8.5-10.3); CREATININE 0.8 mg/dL (0.6-1.3); POTASSIUM 4.2 mmol/L (3.5-4.5)
[2023-12-17 13:45] LABS: ESTIMATED AVERAGE GLUCOSE 148 mg/dL (70-100); HEMOGLOBIN A1c% 6.8 % (4.27-6.07)
== END 2023-12-17 08:10 | disposition home or self-care (01) ==
LOC: LAB.N 08:09
PROVIDERS: ATTEND Physician Assistant Medical
DX: E11.49 Type 2 diabetes mellitus with other diabetic neurological complication (principal)
CPT/HCPCS: 36415; 80048; 83036

== ENCOUNTER 2024-02-21 06:30 | Day surgery (SDC) | payer MEDICARE, OTHER ==
--- NOTE | 2024-02-21 05:34 | ANESTHESIA ---
Pre-Anesthesia VS, & Labs - Diagnosis HX Colon Polyps - Procedure Colonoscopy Height: 5 ft 8 in - Is Patient ?: No Home Medications and Allergies Home Medications: Ambulatory Orders Amlodipine Besylate 1 tab PO BID 02/20/24 Anastrozole 2.5 mg ORAL DAILY 02/20/24 Gabapentin [Neurontin] 2 tab PO TID 02/20/24 Ibuprofen [Advil] 2 tab PO DAILY 02/20/24 Rosuvastatin Calcium [Crestor] 1 tab PO DAILY 02/20/24 Insulin Glargine,Hum.rec.anlog [Lantus] 50 unit SQ QPM 02/10/13 Insulin Lispro [Humalog] 20 unit SQ TIDWM 02/10/13 Losartan [Cozaar] 50 mg PO QPM 02/10/13 Multivitamin [Multivitamins] 1 each PO DAILY 02/10/13 Simvastatin [Zocor] 40 mg PO QPM 02/10/13 Zolpidem [Ambien] 10 mg PO HS 02/10/13 [place]-3 Fatty Acids/Fish Oil [[place]-3 Fish Oil 1,000 mg Sfgl] 2,000 mg PO BID 03/13/16 Loratadine [Clear-Atadine] 10 mg PO QPM 08/24/19 Aspirin 81 mg PO DAILY 08/31/19 Amlodipine Besylate 1 tab PO BID 02/20/24 Anastrozole 2.5 mg ORAL DAILY 02/20/24 Gabapentin [Neurontin] 2 tab PO TID 02/20/24 Ibuprofen [Advil] 2 tab PO DAILY 02/20/24 Rosuvastatin Calcium [Crestor] 1 tab PO DAILY 02/20/24 Allergies/Adverse Reactions: Allergies Allergy/AdvReac Type Severity Reaction Status Date / Time black walnut Allergy Unknown sore mouth Uncoded 02/20/24 12:53 Anes History & Medical History - Medical History Cardiovascular: reports: Hypertension, High cholesterol, Murmur Pulmonary: reports: None Gastrointestinal: reports: Colon polyps Urinary: reports: Chronic bladder infection Musculoskeletal: reports: Osteoarthritis, Other Endocrine/Autoimmune: reports: Type 2 diabetes Blood Disorders: reports: None Skin: reports: None Smoking Status: Never smoker - Surgical History General: reports: Cholecystectomy, Other Gynecologic: reports: Mastectomy Exam General: Alert, Oriented x3, Cooperative Dental: WNL Mouth Openin Fingerbreadth Mallampati classification: II Thyromental Distance: 4-6 cm Plan Anesthesia Type: General Consent for Procedure(s) Verified and Reviewed: Yes Code Status: Attempt Resuscitation ASA classification: 2-Mild systemic disease Is this case an emergency?: No
[~2024-02-21 06:30] MED LIST changes: -BUFFERED LIDOCAINE 10 ML SYRINGE ONE; +PROPOFOL 500 MG/50 ML 500 MG/50 ML VIAL ONE
[2024-02-21] MEDS: LACTATED RINGERS 1,000 ML IV ONE ×2 (06:37→08:34)
[2024-02-21] MEDS ORDERED: PROPOFOL 500 MG/50 ML 500 MG/50 ML VIAL ONE (07:53)
[2024-02-21] MEDS ORDERED: ePHEDrine 50 MG/ML VIAL IVP ONE (08:01)
--- NOTE | 2024-02-21 09:24 | ANESTHESIA POST OP EVALUATION ---
Anesthesia Post Eval - Post Anesthesia Eval Vitals: Last Vital Signs Temp 36.1 C L 02/21/24 08:35 Pulse 65 02/21/24 09:10 Resp 16 02/21/24 09:10 BP 118/82 H 02/21/24 09:10 Pulse Ox 98 02/21/24 09:10 O2 Flow Rate CV Function Including HR & BP: Stable Pain Control: Satisfactory Nausea & Vomiting: Negative Mental Status: Baseline Respiratory Status: Airway Patent Hydration Status: Satisfactory Anesthesia Complications: None
[2024-02-21 09:37] VITALS: BP 139/60; O2SAT 97
== END 2024-02-21 06:31 | disposition home or self-care (01) ==
LOC: SDS 06:30
PROVIDERS: ATTEND Surgery
PROC: 0DBL8ZZ Excision of Transverse Colon, Via Natural or Artificial Opening Endoscopic (ICD-10-PCS; 2024-02-21)
PROC: 0DBM8ZZ Excision of Descending Colon, Via Natural or Artificial Opening Endoscopic (ICD-10-PCS; 2024-02-21)
PROC: 0DBH8ZZ Excision of Cecum, Via Natural or Artificial Opening Endoscopic (ICD-10-PCS; 2024-02-21)
PROC: 0DBK8ZZ Excision of Ascending Colon, Via Natural or Artificial Opening Endoscopic (ICD-10-PCS; principal; 2024-02-21 07:30)
DX: Z12.11 Encounter for screening for malignant neoplasm of colon (principal); D12.2 Benign neoplasm of ascending colon; D12.3 Benign neoplasm of transverse colon; K63.5 Polyp of colon; K57.30 Diverticulosis of large intestine without perforation or abscess without bleeding; E11.9 Type 2 diabetes mellitus without complications; Z79.4 Long term (current) use of insulin
CPT/HCPCS: 45380; J7120

== ENCOUNTER 2024-03-24 09:35 | Outpatient (CLI) | payer MEDICARE, OTHER ==
[2024-03-24 10:17] LABS: ALBUMIN 3.9 g/dL (3.2-5.5); ALBUMIN/GLOBULIN RATIO 1.4 (1.0-2.2); ALKALINE PHOSPHATASE 73 IU/L (42-121); ALT ALANINE AMINOTRANSFERASE 19 IU/L (10-60); AST ASPARTATE AMINOTRANSFERASE 22 IU/L (10-42); BILIRUBIN,TOTAL 0.5 mg/dL (0.2-1.0); BUN - BLOOD UREA NITROGEN 22 mg/dL (6-20); CALCIUM 10.5 mg/dL (8.5-10.3); CARBON DIOXIDE - CO2 31 mmol/L (21-32); CHLORIDE 105 mmol/L (101-111); CHOL/HDL RATIO 2.2 (<4.4); CHOLESTEROL 109 mg/dL; CREATININE 0.7 mg/dL (0.6-1.3); GFR - MDRD 81 (>89); GLUCOSE 116 mg/dL (74-104); HDL CHOLESTEROL 50 mg/dL; LDL CHOLESTEROL,CALCULATED 40 mg/dL; LDL/HDL RATIO 0.8 (<4.4); POTASSIUM 4.2 mmol/L (3.5-4.5); SODIUM 139 mmol/L (135-145); TOTAL PROTEIN 6.6 g/dL (6.4-8.9); TRIGLYCERIDES 97 mg/dL; VLDL CHOLESTEROL 19 mg/dL
[2024-03-24 13:29] LABS: ESTIMATED AVERAGE GLUCOSE 134 mg/dL (70-100); HEMOGLOBIN A1c% 6.3 % (4.27-6.07)
== END 2024-03-24 09:36 | disposition home or self-care (01) ==
LOC: LAB 09:35
PROVIDERS: ATTEND Physician Assistant Medical
DX: E11.49 Type 2 diabetes mellitus with other diabetic neurological complication (principal)
CPT/HCPCS: 36415; 80053; 80061; 83036; 83721